=== PATIENT | male | born 1970 | race Asian ===

== ENCOUNTER 2016-10-14 06:51 | Day surgery (SDC) | payer BC ==
[~2016-10-14] VITALS: Ht 177.8 cm; Wt 71.3 kg
[2016-10-14] VITALS (10 sets, daily range): BP systolic 100–158; BP diastolic 51–91; PULSE 74–101; TEMP 97.5–98.7
[~2016-10-14 06:51] MED LIST: ASPIRIN 81M81 MG/TA2 PO; LANTUS SOLOS100 U/ML SQ; LIPITOR 80MG80 MG PO; NEURONTIN300 MG/CAP PO; TRULICITY0.75 MG/0. SQ; ZESTRIL 5MG5 MG PO
[2016-10-14] MEDS ORDERED: TRULICITY1.5 MG/0.5 SQ (07:17)
[2016-10-14] MEDS ORDERED: TOUJEO300 U/ML SQ (07:20)
[2016-10-14] MEDS ORDERED: IMDUR 30MG30 MG/TAB PO (07:21)
[2016-10-14] MEDS ORDERED: PLAVIX 75MG TAB75 MG PO (07:22)
[2016-10-14] MEDS ORDERED: COREG 3.123.125 MG/T PO (07:23)
[2016-10-14 07:32] LABS: MEAN CELL VOLUME 92 fl (80.0-100.0); MEAN CORPUSCULAR HGB CONC 33 g/dl (33.0-37.0); MEAN PLATELET VOLUME 9.3 fl (7.4-10.4); PLATELET COUNT 246 K/mm3 (130-400); RED BLOOD COUNT 3.67 M/mm3 (4.20-5.60); REDCELL DISTRIBUTION WIDTH-CV 13.8 % (11.5-14.5); WHITE BLOOD COUNT 9.1 K/mm3 (4.8-10.8)
[2016-10-14 07:34] LABS: HEMATOCRIT 33.6 % (42.0-52.0); HEMOGLOBIN 11.1 g/dl (13.5-18.0); MEAN CORPUSCULAR HEMOGLOBIN 30 pg (27.0-31.0)
[2016-10-14 07:35] LABS: INR 0.9 (0.8-3.0); PROTHROMBIN TIME 10.1 SECONDS (9.7-12.8)
[2016-10-14 08:45] LABS: CALCIUM 9.3 mg/dL (8.4-10.2); CREATININE, serum 1.99 mg/dL (0.66-1.25); POTASSIUM 5.1 mmol/L (3.4-5.0)
[2016-10-15] VITALS (10 sets, daily range): BP systolic 123–154; BP diastolic 69–94; PULSE 78–93; TEMP 97–98.9
== END 2016-10-15 13:03 | disposition home or self-care (01) ==
LOC: COL.CAR 06:51 → MEDICAL 11:15 → COL.CAR 10-15 13:03
PROVIDERS: Internal Medicine Cardiovascular Disease
DX: I42.8 Other cardiomyopathies (principal); I13.0 Hypertensive heart and chronic kidney disease with heart failure and stage 1 through stage 4 chronic kidney disease, or unspecified chronic kidney disease; I50.42 Chronic combined systolic (congestive) and diastolic (congestive) heart failure; N18.9 Chronic kidney disease, unspecified; E11.22 Type 2 diabetes mellitus with diabetic chronic kidney disease; Z79.4 Long term (current) use of insulin; E78.5 Hyperlipidemia, unspecified; E11.40 Type 2 diabetes mellitus with diabetic neuropathy, unspecified; I34.0 Nonrheumatic mitral (valve) insufficiency; F17.200 Nicotine dependence, unspecified, uncomplicated; I25.10 Atherosclerotic heart disease of native coronary artery without angina pectoris
CPT/HCPCS: OP; C1721; C1769; C1777; C1898; J0690; J1815; J2250; J3010; J7030; J7050